=== PATIENT | female | born 1930 | race African-American/Black ===

== ENCOUNTER 2017-05-14 10:40 | Outpatient (CLI) | payer OTHER ==
[2017-05-14 11:12] LABS: #Basophils 0.1 thou/uL (0.0-0.2); #Eosinphils 0.1 thou/uL (0.0-0.7); #Lymphocytes 2.1 thou/uL (1.20-3.40); #Monocytes 0.7 thou/uL (0.11-0.59); %Basophils 0.5 % (0.0-1.0); %Eosinophils 1.2 % (0.0-10.0); %Lymphocytes 17.7 % (21.0-51.0); %Monocytes 5.9 % (0.0-10.0); %Neutrophils 74.7 % (42.0-75.0); Hemoglobin 13.6 g/dL (12.0-16.0); Mean Corpuscular HGB CONC 31.1 g/dL (32.0-36.0); Mean Corpuscular Hemoglobin 28.9 pg (27.0-31.0); Mean Corpuscular Volume 92.8 fl (81.0-99.0); Mean Platelet Volume 8.1 fL (7.4-10.4); Platelet Count 331 thou/uL (130-400); RBC Distribution Width 12.7 % (11.5-14.5); Red Blood Cell (RBC) Count 4.72 mill/uL (4.20-5.40)
[2017-05-14 11:51] LABS: Anion Gap 13 mmol/L (10-20); BUN (Urea Nitrogen) 16 mg/dL (9.8-20.1); Calc. Creatinine Clearance 0 mL/min (70-130); Calcium 10.1 mg/dL (7.8-10.44); Carbon Dioxide 33 mmol/L (23-31); Chloride 106 mmol/L (98-107); Cholesterol 210 mg/dl (< 200 Desired); Estimated GFR-MDRD 60; Glucose 113 mg/dL (83-110); HDL Cholesterol 35 mg/dL (>60 Neg Risk); LDL Cholesterol, Calculated 155 mg/dL; Potassium 3.8 mmol/L (3.5-5.1); Sodium 148 mmol/L (136-145); Triglycerides 99 mg/dL (Less than 150)
== END 2017-05-14 10:41 | disposition home or self-care (01) ==
LOC: NAVSJIPCSP 10:40
PROVIDERS: ATTEND Internal Medicine
DX: E78.5 Hyperlipidemia, unspecified (principal); N18.3 Chronic kidney disease, stage 3 (moderate); J40 Bronchitis, not specified as acute or chronic; Z79.899 Other long term (current) drug therapy
CPT/HCPCS: 36415; 80048; 80061; 85025

== ENCOUNTER 2017-09-19 15:03 | Emergency (ER) | payer MEDICARE, OTHER ==
--- NOTE | 2017-09-19 16:15 | RAD ---
CHEST ONE VIEW: HISTORY: Dyspnea. Cough. COMPARISON: 07/26/2016 FINDINGS: The cardiac silhouette is magnified and enlarged. The pulmonary vasculature is more engorged with pa tchy bilateral perihilar and bibasilar infiltrates. The mediastinum is midline with aortic calcifica tion. secured entrance monitor leads overly the chest. IMPRESSION: 1. Congestive heart failure. 2. Atherosclerosis. POS: [facility]
[2017-09-19 16:31] LABS: ALT (SGPT) 20 U/L (8-55); AST (SGOT) 32 U/L (5-34); Albumin 3.4 g/dL (3.4-4.8); Alkaline Phosphatase 104 U/L (40-150); Anion Gap 18 mmol/L (10-20); BUN (Urea Nitrogen) 34 mg/dL (9.8-20.1); Bilirubin, Total 0.5 mg/dL (0.2-1.2); Calc. Creatinine Clearance 0 mL/min (70-130); Calcium 9.5 mg/dL (7.8-10.44); Carbon Dioxide 26 mmol/L (23-31); Chloride 103 mmol/L (98-107); Estimated GFR-MDRD 43; Glucose 107 mg/dL (83-110); Potassium 4.2 mmol/L (3.5-5.1); Protein, Total 7.4 g/dL (6.0-8.3); Sodium 143 mmol/L (136-145)
[2017-09-19 16:32] LABS: CKMB 3.1 ng/mL (0-6.6)
[2017-09-19] MEDS ORDERED: Furosemide 20 MG/2 ML VIAL ONE (16:38)
[2017-09-19 17:54] LABS: #Lymphocytes 1.8 thou/uL (1.20-3.40); #Monocytes 0.7 thou/uL (0.11-0.59); #Neutrophils 5.2 thou/uL (1.40-6.50); %Basophils 0.4 % (0.0-1.0); %Eosinophils 0.1 % (0.0-10.0); %Lymphocytes 22.9 % (21.0-51.0); %Monocytes 8.7 % (0.0-10.0); %Neutrophils 67.9 % (42.0-75.0); Hemoglobin 13.8 g/dL (12.0-16.0); Mean Corpuscular HGB CONC 31.1 g/dL (32.0-36.0); Mean Corpuscular Hemoglobin 28.6 pg (27.0-31.0); Mean Corpuscular Volume 91.9 fl (81.0-99.0); Mean Platelet Volume 8.7 fL (7.4-10.4); Platelet Count 251 thou/uL (130-400); RBC Distribution Width 12.5 % (11.5-14.5); Red Blood Cell (RBC) Count 4.84 mill/uL (4.20-5.40); White Blood Cell (WBC) Count 7.7 thou/uL (4.8-10.8)
== END 2017-09-19 18:52 | disposition short-term general hospital (02) ==
LOC: NAV ERS 15:03
DX: I50.9 Heart failure, unspecified (principal); R09.02 Hypoxemia; N28.9 Disorder of kidney and ureter, unspecified; R79.89 Other specified abnormal findings of blood chemistry; J42 Unspecified chronic bronchitis; J45.909 Unspecified asthma, uncomplicated; Z79.899 Other long term (current) drug therapy
CPT/HCPCS: 36415; 71010; 80053; 82553; 83605; 83880; 84484; 85025; 85379; 87040; 87149; 93005; 94640; 96374; J1940; J7620

== ENCOUNTER 2020-01-18 08:38 | Emergency (ER) | payer MEDICARE ==
--- NOTE | 2020-01-18 09:33 | CT ---
CT Brain WO Con: 01/18/2020 8:58 AM CLINICAL HISTORY: Fall with head injury. IMAGING TECHNIQUE: Multiple CT images were obtained of the brain without IV contrast. COMPARISON: July 31, 2016 FINDINGS: Brain: There is generalized cerebral and cerebellar atrophy which is stable. Dystrophic calcificatio ns within the globus pallidus are stable. No acute infarct, hemorrhage or hydrocephalus is present. Ventricles: Normal. No hydrocephalus. Skull: Intact. Visualized Paranasal sinuses: There is near complete opacification of the left maxillary sinus with l arge mucous retention cyst. Mastoid air cells:There is stable complete opacification of left mastoid air cells. Extracranial soft tissues:Normal. IMPRESSION: No acute intracranial abnormality. Enlarging left maxillary sinus mucus retention cyst or Stable complete opacification of the left mastoid air cells
[2020-01-18] MEDS ORDERED: Lidocaine 1% w/Epinephrine 1:100K 30 ML VIAL ONE (09:42)
[2020-01-18] MEDS ORDERED: Bacitracin 1 PK ONE (10:04)
== END 2020-01-18 10:23 | disposition home or self-care (01) ==
LOC: NAV ERS 08:38
DX: S01.111A Laceration without foreign body of right eyelid and periocular area, initial encounter (principal); S01.511A Laceration without foreign body of lip, initial encounter; S60.811A Abrasion of right wrist, initial encounter; E78.5 Hyperlipidemia, unspecified; E78.00 Pure hypercholesterolemia, unspecified; I10 Essential (primary) hypertension; J44.9 Chronic obstructive pulmonary disease, unspecified; Z79.899 Other long term (current) drug therapy; W06.XXXA Fall from bed, initial encounter
CPT/HCPCS: 12011; 70450; J2001

== ENCOUNTER 2020-01-27 15:46 | Emergency (ER) | payer MEDICARE | END 2020-01-27 16:22 | disposition home or self-care (01) | LOC: NAV ERS 15:46 | DX: S01.111D Laceration without foreign body of right eyelid and periocular area, subsequent encounter (principal); E78.5 Hyperlipidemia, unspecified; I10 Essential (primary) hypertension; J44.9 Chronic obstructive pulmonary disease, unspecified; Z79.899 Other long term (current) drug therapy; X58.XXXD Exposure to other specified factors, subsequent encounter ==